=== PATIENT | female | born 1965 | race Caucasian/White ===

== ENCOUNTER 2016-07-16 07:24 | Day surgery (SDC) | payer MEDICAID, OTHER ==
[2016-07-16] MEDS ORDERED: Lactated Ringers 1,000 ML IV SCH (08:00)
[2016-07-16] MEDS ORDERED: Propofol 200 MG/20 ML SDV ONE (08:17)
[2016-07-16] MEDS ORDERED: Midazolam 1 MG/ML 2 ML SDV ONE (08:18)
[2016-07-16] MEDS ORDERED: fentaNYL 100 MCG/2 ML SDV ONE (08:18)
[2016-07-16] MEDS ORDERED: Cyanocobalamin (Vitamin B12) 1,000 MCG/ML SDV IM ONE (08:30)
[2016-07-16] MEDS ORDERED: Glycopyrrolate 0.2 MG/ML 2 ML SYRINGE IVPUSH ONE (08:45)
[2016-07-16] MEDS ORDERED: MVI, Adult with Vitamin K 10 ML, Thiamine 200 MG, Chromium/Copper/Mang/Selen/Zn 1 ML in... IV ONE ×4 (09:00)
[2016-07-16] MEDS ORDERED: Pantoprazole 40 MG Vial IVPUSH ONE (10:23)
[2016-07-16] MEDS ORDERED: Famotidine 20 MG/2 ML SDV IVPUSH PRN (11:15)
[2016-07-16] MEDS ORDERED: Hydrocortisone Sodium Succinate 100 MG/2 ML SDV IVPUSH PRN (11:15)
[2016-07-16] MEDS ORDERED: diphenhydrAMINE 50 MG/ML SDV IVPUSH PRN (11:15)
[2016-07-16 11:53] VITALS: BP 112/86
--- NOTE | 2016-07-20 10:21 | OR ---
DATE OF PROCEDURE: 07/16/2016 PREOPERATIVE DIAGNOSIS: Epigastric pain. 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 OPERATIVE PROCEDURE: Upper gastrointestinal endoscopy with biopsies of gastric pouch for CLOtest. ANESTHESIA: IV sedation. INDICATIONS FOR PROCEDURE: A 51-year-old female status post Estelle-en-Y gastric bypass in 2005, presenting with some epigastric discomfort as well as some dysphagia, referable to the area of the gastric bypass. The plan is to proceed with upper GI endoscopy with biopsies and/or dilation as indicated. Potential risks including bleeding and perforation were discussed, and the patient wishes to proceed. DETAILS OF PROCEDURE: The patient was taken to the operating room and placed in left lateral decubitus position. IV sedation was administered, after which the upper GI endoscope was passed orally through the length of the esophagus, into the stomach pouch, and then through the gastrojejunostomy roughly 20 cm into the Estelle limb. The gastric pouch was noted to be moderately edematous. This was particularly prevelant at the area of the gastrojejunostomy where the reddening and edema likely were creating some of the sense of dysphagia. There was no fibrous stricturing present with the scope easily being passed through that area and no true marginal ulcer. Remainder of the visualized Estelle limb was unremarkable. At this point, biopsies were obtained from the gastric pouch, sent for CLOtest for H. pylori. Minimal bleeding from the biopsy sites was see, and the procedure then concluded with removal of the scope. The plan will be to give the patient Protonix 40 mg in the recovery room and then begin 40 mg daily and follow up with Briana Malagon in roughly 1 month. One additional note on this patient is that at the last visit, she was noted to have some intermittent problems with hypoglycemia and was started on acarbose 25 mg t.i.d. with meals. This appears to have alleivated that problem. I will continue that at present dosage, and she is instructed to at various times probably twice a day check her blood sugars and then bring those records to the next appointment and then call if she is having any recurrent problems with hypoglycemia in the interim. Theodore Mcnally MD /[id number]
== END 2016-07-16 12:30 | disposition home or self-care (01) ==
LOC: JP.SDS 07:24
PROVIDERS: ATTEND Surgery
DX: K29.70 Gastritis, unspecified, without bleeding (principal); E16.2 Hypoglycemia, unspecified; E66.9 Obesity, unspecified; F17.200 Nicotine dependence, unspecified, uncomplicated; Z98.84 Bariatric surgery status; Z88.8 Allergy status to other drugs, medicaments and biological substances
CPT/HCPCS: 43239; 87081; C9113; J2250; J2704; J3010; J3411; J3420; J7030; J7120; Q0138